=== PATIENT | female | born 1955 | race African-American/Black ===

== ENCOUNTER 2020-02-07 09:43 | Emergency (ER) | payer MEDICARE, OTHER ==
[~2020-02-07] VITALS: Ht 165.1 cm; Wt 136.1 kg
[2020-02-07 10:28] LABS: Basophils # (auto) 0 10 ^3/uL (0-0.2); Hemoglobin 9.8 g/dL (12.2-16.2); Monocytes # (auto) 0.5 10 ^3/uL (0-1.3); Neutrophils # (auto) 4.4 10 ^3/uL (1.6-8.6); Nucleated Red Blood Cells % 0.1 %
[2020-02-07 10:30] LABS: Basophils % (auto) 0.8 % (0.0-2.0); Eosinophils # (auto) 0.1 10 ^3/uL (0-0.8); Eosinophils % (auto) 2.2 % (0.0-7.0); Lymphocytes # (auto) 0.8 10 ^3/uL (0.4-5.4); Lymphocytes % (auto) 14.3 % (10.0-50.0); Mean Corpuscular Hgb Conc. 31.8 g/dL (32.0-36.0); Monocytes % (auto) 8.4 % (0.0-12.0); Neutrophils % (auto) 74.3 % (37.0-80.0); Platelet Count (auto) 234 10^3/uL (140-450); Red Blood Cells 3.65 10^6/uL (4.0-5.20); Red Cell Distribution Width 16.3 % (11.8-14.3); White Blood Cell 5.9 10^3/uL (4.4-10.8)
[2020-02-07 10:39] LABS: INR 1.01 (0.9-1.15); Partial Thromboplastin Time 28.3 sec (23.64-32.05)
[2020-02-07 10:44] LABS: Alanine Aminotransferase 12 U/L (13-56); Albumin 2.8 g/dL (3.4-5.0); Anion Gap 4 (5-15); Blood Urea Nitrogen 15 mg/dL (7-18); Calcium 8.2 mg/dL (8.5-10.1); Carbon Dioxide 31 mmol/L (21-32); Chloride 105 mmol/L (98-107); Glucose 125 mg/dL (74-106); Potassium 3.7 mmol/L (3.5-5.1); Sodium 140 mmol/L (136-145)
[2020-02-07 10:49] LABS: Alkaline Phosphatase 88 U/L (45-117); Aspartate Aminotransferase 8 U/L (15-37); BUN/Creatinine Ratio 16.3; Bilirubin, Total 0.4 mg/dL (0.2-1.0); GFR African American 79 mL/min; GFR Non-African American 65 mL/min; Total Protein 6.6 g/dL (6.4-8.2)
[2020-02-07] MEDS ORDERED: IOHEXOL 350 MG/ML 100ML IJ ONE (16:31)
[2020-02-07 22:05] VITALS: BP 125/67
== END 2020-02-07 22:35 | disposition home or self-care (01) ==
LOC: ER 09:43
DX: R07.89 Other chest pain (principal); R20.0 Anesthesia of skin; E44.0 Moderate protein-calorie malnutrition; D64.9 Anemia, unspecified; Z95.0 Presence of cardiac pacemaker
CPT/HCPCS: 36415; 70450; 71046; 71275; 80053; 83735; 83880; 84484; 85025; 85379; 85610; 85730; 93005; 99285; Q9967